=== PATIENT | male | born 1990 | race Two or more races ===

== ENCOUNTER 2017-03-19 00:09 | Emergency (ER) | payer SELFPAY ==
[~2017-03-19] VITALS: Ht 175.3 cm; Wt 77.1 kg
[2017-03-19 00:22] VITALS: BP 124/76
[2017-03-19] MEDS ORDERED: IBUPROFEN 600 MG TAB PO ONE (02:45)
[2017-03-19] MEDS ORDERED: CYCLOBENZAPRINE HCL 10 MG TAB PO ONE (02:45)
== END 2017-03-19 03:12 | disposition home or self-care (01) ==
LOC: ER 00:12
DX: S13.9XXA Sprain of joints and ligaments of unspecified parts of neck, initial encounter (principal); S00.83XA Contusion of other part of head, initial encounter; S39.012A Strain of muscle, fascia and tendon of lower back, initial encounter; F17.210 Nicotine dependence, cigarettes, uncomplicated; V49.49XA Driver injured in collision with other motor vehicles in traffic accident, initial encounter; Y93.89 Activity, other specified; Y99.8 Other external cause status; Y92.410 Unspecified street and highway as the place of occurrence of the external cause
CPT/HCPCS: 70450; 72040; 72100